=== PATIENT | female | born 1960 | race Hispanic/Latino ===

== ENCOUNTER 2018-01-24 08:28 | Outpatient (CLI) | payer OTHER ==
--- NOTE | 2018-01-24 11:44 | CT ---
CT NECK SOFT TISSUES WITH CONTRAST: DATE: 01-24-18 HISTORY: 57-year-old female with: K11.20 - sialadenitis, unspecified E04.9 - goiter NOS Left sided submandibular swelling. History of thyroid goiter. Suspected/rule out colon mass. Swell ing. Neoplasia. Comparison: None. FINDINGS: The bilateral submandibular and parotid glands are symmetrically normal in size, and have symmetrical , normal enhancement, with no evidence of mass, and no surrounding edema. No sialolithiasis is identi fied, in Nilson's ducts or [place]'s ducts, or within the submandibular and parotid glands themselve s. There are several mildly enlarged level 1 lymph nodes. These include round level 1A, (submandibular) lymph node measuring 0.8 cm, and a left level I B(submandibular) lymph node measuring 1 x 0.8 x 0.9 c m, and a right level I B lymph node measuring 1.3 x 0.8 x 1.0 cm. The lymph nodes at other levels are mostly less than 1 cm in short axis. None of the lymph nodes have irregular margins, surrounding fat stranding, or central necrosis. The right lobe of the thyroid gland is absent. There are surgical clips in the right thyroid bed. The left lobe of the thyroid gland is small. There is a nonspecific 0.9 x 0.7 x 0.7 cm heterogeneously s lightly hypodense thyroid nodule at the lower pole of the left lobe of the thyroid gland. Trachea is patent and clear. Effacement of the left glossopharyngeal sulcus is noted. This is nonspecific, and c ould be due to secretions and/or apposition of adjacent mucosal surfaces, but direct visualization is recommended to rule out neoplasm. No enlargement of the sublingual tonsil or adenoids. There is medi alization of the right vocal cord. No evidence of neoplastic tumor in the larynx. The veins of the ne ck are engorged, including bilateral internal jugular veins and bilateral facial veins. 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 The maxillary sinuses, and the inferior portions of the sphenoid sinus, are grossly clear. The bilate ral middle ear cavities and mastoid antra are grossly clear. Bilateral TMJs are normal. There is mode rate degenerative disc disease at C6-7. There is moderate left degenerative facet disease at C5-6. IMPRESSION: 1. No evidence of submandibular neoplasm or sialadenitis. 2. Nonspecific minimally enlarged level 1A and 1B lymph nodes bilaterally. 3. Status post right thyroid lobectomy. 4. Evidence for right vocal cord paresis/paralysis. 5. Nonspecific left lobe thyroid nodule. 6. Nonspecific effacement of left glossopharyngeal sulcus. This is usually due to secretions and/or a pposition of adjacent mucosal surfaces, but direct visualization is recommended to rule out the small possibility of neoplasm. POS: NICOLE
== END 2018-01-24 08:29 | disposition home or self-care (01) ==
LOC: SCSCT 08:28
PROVIDERS: ATTEND Otolaryngology Otolaryngic Allergy
DX: K11.20 Sialoadenitis, unspecified (principal); E04.9 Nontoxic goiter, unspecified; J38.01 Paralysis of vocal cords and larynx, unilateral; E89.0 Postprocedural hypothyroidism
CPT/HCPCS: 70491

== ENCOUNTER 2018-07-19 08:16 | Outpatient (CLI) | payer OTHER ==
--- NOTE | 2018-07-27 09:52 | MMO ---
Bilateral MAMMO Bilat Screen [facility]. CLINICAL HISTORY: Patient is 58 years old and is seen for screening. The patient has no family history of breast cancer. The patient has no personal history of cancer. VIEWS: The views performed were: bilateral craniocaudal and bilateral mediolateral oblique. FILMS COMPARED: The present examination has been compared to prior imaging studies performed at This study has been interpreted with the assistance of computer-aided detection. MAMMOGRAM FINDINGS: The breasts are heterogeneously dense, which could obscure a lesion on mammography. Finding 1: There are stable benign appearing calcifications seen in both breasts. Finding 2: There are multiple stable masses with circumscribed margins seen in both breasts. There are no suspicious masses, suspicious calcifications, or new areas of architectural distortion. IMPRESSION: THERE IS NO MAMMOGRAPHIC EVIDENCE OF MALIGNANCY. A ROUTINE FOLLOW-UP MAMMOGRAM IN 1 YEAR IS RECOMMENDED. ACR BI-RADS Category 2 - Benign finding MAMMOGRAPHY NOTE: 1. A negative mammogram report should not delay a biopsy if a dominant of clinically suspicious mass is present. 2. Approximately 10% to 15% of breast cancers are not detected by mammography. 3. Adenosis and dense breasts may obscure an underlying neoplasm.
== END 2018-07-19 08:17 | disposition home or self-care (01) ==
LOC: SCSMAMMO 08:16
PROVIDERS: ATTEND Family Medicine
DX: Z12.31 Encounter for screening mammogram for malignant neoplasm of breast (principal)
CPT/HCPCS: 77067

== ENCOUNTER 2019-03-11 07:11 | Outpatient (CLI) | payer OTHER ==
[2019-03-11 08:45] LABS: Free T4 (Free Thyroxine) 0.84 ng/dL (0.70-1.48); Thyroid Stimulating Hormone 2.8399 uIU/mL (0.35-4.94)
--- NOTE | 2019-03-11 09:30 | ULT ---
THYROID ULTRASOUND: HISTORY: Thyroid nodule. FINDINGS: Real-time imaging of the thyroid gland shows the right lobe to have been removed. Multiple left lobe thyroid nodules are seen, most of which are in the 6 mm range. The largest nodule is a solid nodule in the lower pole region measuring 1.3 cm in maximum dimension. It is hypoechoic, wider than tall, slightly ill-defined margins without any definitive calcifications. IMPRESSION: 1. Post right thyroid lobectomy change. 2. Multiple left lobe thyroid nodules. The largest nodule is in the lower pole region. It correspo nds to a TIRADS level IV nodule. The recommendation for this type of nodule is if greater than 1.5 c m for fine needle aspiration and if greater than 1 cm followup. Therefore, this nodule would fall in to the followup category. A 6-12 month followup would be recommended. POS: NICOLE
[2019-03-11 11:30] LABS: T4 8.5 ug/dL (4.87-11.72)
== END 2019-03-11 07:12 | disposition home or self-care (01) ==
LOC: SCSULT 07:11
PROVIDERS: ATTEND Internal Medicine
DX: E03.9 Hypothyroidism, unspecified (principal); E04.2 Nontoxic multinodular goiter; Z98.890 Other specified postprocedural states
CPT/HCPCS: 76536; 84436; 84439; 84443; 84479